=== PATIENT | female | born 1955 | race Two or more races ===

== ENCOUNTER 2017-03-10 03:59 | Emergency (ER) | payer BC ==
[~2017-03-10] VITALS: Ht 165.1 cm; Wt 68.0 kg
[2017-03-10] MEDS ORDERED: KETOROLAC TROMETHAMINE 30 MG INJ IM ONE (04:15)
[2017-03-10] MEDS ORDERED: KETOROLAC TROMETHAMINE 30 MG INJ ONE (04:32)
[2017-03-10 04:33] LABS: *BILIRUBIN,URIN NEGATIVE (NEGATIVE); *BLOOD, URINE NEGATIVE (NEGATIVE); *CLARITY,URINE CLEAR (CLEAR); *COLOR,URINE YELLOW (YELLOW); *KETONES,URINE NEGATIVE (NEGATIVE); *PROTEIN,URINE NEGATIVE (NEGATIVE); *UROBILINOGEN,URINE 0.2 E.U./dl (NORMAL); LEUKOCYTE ESTERASE ,URINE NEGATIVE (NEGATIVE); NITRITE, URINE NEGATIVE (NEGATIVE); PH,URINE 6.5 (5.0-8.0); UGLUCOSE NEGATIVE (NEGATIVE)
[2017-03-10 04:36] LABS: BACTERIA,URINE FEW /HPF (NONE SEEN); RBC,URINE 0-3 /HPF (0-3); SQUAMOUS EPITHELIAL CELL,UR FEW /HPF (NONE SEEN); WBC,URINE 0-3 /HPF (0-3)
--- NOTE | 2017-03-10 04:50 | NUR ---
[facility] contacted for transportation to [facility] for CT scan. ETA 30 min.
[2017-03-10] MEDS ORDERED: MORPHINE SULFATE 4 MG/1 ML DISP.SYRIN IV ONE (05:00)
[2017-03-10 05:06] LABS: BASOPHILS % (AUTO) 0.9 % (0.0-2.0); EOSINOPHILS % (AUTO) 1.2 % (0.0-7.0); HEMOGLOBIN 13.6 G/DL (12.0-16.0); LYMPHOCYTES # (AUTO) 1.8 K/UL (0.8-4.8); LYMPHOCYTES % (AUTO) 42.4 % (20.5-51.5); MEAN CORPUSCULAR HEMOGLOBIN 31.5 UUG (27.0-31.0); MEAN CORPUSCULAR HGB CONC 35 g/dL (32.0-37.0); MEAN CORPUSCULAR VOLUME 90.3 FL (81.0-99.0); MONOCYTES # (AUTO) 0.5 K/UL (0.1-1.30); MONOCYTES % (AUTO) 11.7 % (0.0-11.0); NEUTROPHILS # (AUTO) 1.8 K/UL (1.8-8.9); NEUTROPHILS % (AUTO) 43.8 % (38.5-71.5); PLATELET COUNT (AUTO) 206 K/UL (150-450); RED BLOOD CELL COUNT(AUTO) 4.32 MIL/UL (4.2-5.4); WHITE BLOOD COUNT (AUTO) 4.1 K/UL (4.0-11.2)
[2017-03-10 05:14] LABS: CREATININE 0.8 mg/dL (0.6-1.3); POTASSIUM 3.8 mmol/L (3.5-5.1)
[2017-03-10] MEDS ORDERED: IV NORMAL SALINE 250 ML IV ONE (05:18)
[2017-03-10] MEDS ORDERED: IOHEXOL 300MG/ML 100 ML INFUS..BTL ONE (05:18)
[2017-03-10 05:21] LABS: BILIRUBIN,DIRECT 0.2 mg/dL (0.0-0.2); BILIRUBIN,TOTAL 0.7 mg/dL (0.2-1.0); TOTAL PROTEIN, SERUM 7.4 g/dL (6.4-8.2)
--- NOTE | 2017-03-10 05:25 | NUR ---
[facility] transporting patient to [facility] for CT scan. CT contrast waiver signed, Dash POLLACK and verified by ROBERTA. Addendum: 03/10/17 at 0526 by BELLE Contrast waiver signed and copy to [facility].
--- NOTE | 2017-03-10 06:40 | NUR ---
Patient returned from [facility] Radiology, patient states that the pain is returning but is still tolerable. ERMD notified.
[2017-03-10] MEDS ORDERED: HYDROCODONE/APAP 7.5-325MG TABLET PO PRN (07:15)
[2017-03-10] MEDS ORDERED: HYDROCODONE/APAP 7.5-325MG TABLET ONE (07:38)
--- NOTE | 2017-03-10 08:01 | NUR ---
Patient discharged to home in stable conditon. Written and verbal after care instructions given. Patient verbalizes understanding of instructions.pt walks in steady gait.
[2017-03-10 08:02] VITALS: BP 129/61
== END 2017-03-10 08:03 | disposition home or self-care (01) ==
LOC: ER 04:04
DX: R10.9 Unspecified abdominal pain (principal); M79.602 Pain in left arm; R30.0 Dysuria; R31.9 Hematuria, unspecified
CPT/HCPCS: 36415; 74177; 80048; 80076; 81001; 82550; 83605; 83690; 84484; 85025; 85730; 93005 ×2; 96372; 96374; 99285; A4663; J1885; J2270; J7050; Q9967; 70030-TC